=== PATIENT | male | born 1955 ===

== ENCOUNTER → 2018-09-19 | Outpatient (CLI) | payer OTHER ==
[2018-09-13 11:16] VITALS: BMI 35.7
[2018-09-19 13:59] VITALS: BP 144/84; PULSE 103; RESP 18; TEMP 98.1
--- NOTE | 2018-09-19 15:11 | P.PAINCN ---
History of Present Illness - Reason for Consult Consult date: 09/19/18 - History of Present Illness This is 62 years old male with a chronic history of severe low back pain with radiation to the lower extremity, pain started 8 years ago he denies any initiating event and can still the pain increased over time, pain associated with numbness and tingling sensation, is constant and increases with any activity aggravated with, walking standing, and then the numbness radiated to both feet bilaterally, he denies any fever or night sweats he denies any change in bowel movement or urination, he , is currently on Neurontin, he continued to have numbness and tingling, he never tried any interventional pain management he never had any surgical intervention on his back, he denies any weakness in his lower extremity but he feels that after walking for a couple of blocks he feels his legs weak, was never evaluated by neurosurgery and he was referred to [facility] pain clinic for interventional pain management Past Medical History Past Medical History: GERD/Reflux, Hyperlipidemia, Hypertension, Myocardial Infarction ([place]), Sleep Apnea/CPAP/BIPAP Additional Past Medical History / Comment(s): freq nighttime urination,does not use cpap,herpes Last Myocardial Infarction Date:: 2011 History of Any Multi-Drug Resistant Organisms: None Reported Past Surgical History: Heart Catheterization With Stent Additional Past Surgical History / Comment(s): heart stent x1,ORIF left lower arm Past Anesthesia/Blood Transfusion Reactions: No Reported Reaction Additional Past Anesthesia/Blood Transfusion Reaction / Comm: no hx blood transfusion Date of Last Stent Placement:: 2011 Past Psychological History: Bipolar Smoking Status: Current every day smoker Past Alcohol Use History: Occasional Additional Past Alcohol Use History / Comment(s): started at age 32,<1ppd Past Drug Use History: None Reported - Past Family History Father Family Medical History: Cancer Additional Family Medical History / Comment(s): colon Medications and Allergies Home Medications Medication Instructions Recorded Confirmed Type Aspirin 81 mg PO DAILY 09/13/18 09/19/18 History Citalopram Hydrobromide [CeleXA] 20 mg PO DAILY 09/13/18 09/19/18 History Diltiazem Cd [Cardizem Cd] 180 mg PO DAILY 09/13/18 09/19/18 History Gabapentin [Neurontin] 400 mg PO DAILY 09/13/18 09/19/18 History Lisinopril [Zestril] 40 mg PO DAILY 09/13/18 09/19/18 History Simvastatin 40 mg PO DAILY 09/13/18 09/19/18 History Tamsulosin HCl [Flomax] 0.4 mg PO DAILY 09/13/18 09/19/18 History valACYclovir [Valtrex] 500 mg PO DAILY 09/13/18 09/19/18 History Allergies Allergy/AdvReac Type Severity Reaction Status Date / Time No Known Allergies Allergy Verified 09/19/18 13:45 Physical Exam Vitals: Vital Signs Temp Pulse Resp BP Pulse Ox 09/19/18 13:46 98.1 F 103 H 18 144/84 97 Social history : smoker , NO ETOH . Review of Systems : - Constitutional : no chills , no fever , no night sweats , - Ears : no ear discharge , no change in hearing -Nose, Mouth ,Throat ; no bleeding gums, no sore throat , no epistaxis , -Cardiovascular : Denies chest pain, , no orthopnea , no palpitation -Respiratory : Denies cough , no dyspnea , no hemoptysis -Gastrointestinal :, no change in bowel habits , no coffee- ground emesis . -Genitourinary : No hematuria , no discharge , no incontinence, -Musculoskeletal : No gait dysfunction , report low back pain , - Neurological : no ataxia , no tremor , no sezure , -Psychatric , no suicidal ideation no hallucination - Endocrine : no cold intolerence , no polyuria , no polydypsia , -Hematologic : no easy bleeding , no easy brusing , -Allergic / immunology : no angioedema , no wheezing ,no allergic rhinitis -Integumentary : no brttle nails , no change hair / nails , no foot/leg ulcers . Physical Examinations : -Constitutional : Cooperative , not in acute distress . -HEENT : nech ; supple , no Lymphadenopathy , no Thyromegaly , :eyes , no icterus, no photophobia . ENT : , normal oropharynx , no Thrush - Respiratory : Chest clear to auscultations Bilaterally , no wheezing - Cardiovascular : regular rate and rhythem , S1 , S2 , no S3 , no S4. - Gastrointestinal: abdomen soft no tenderness , no organomegally . - Genitourinary : Defferred . -Integumentary : No cellulitis , no ulcers , normal skin turgor , no cyanotic . - neurologic : Cranial nerve II to XII intact , no focal neurological deffecit -psychatric : alert , oriented X 3 , appropriate affect , intact judgment and insight . -Lymphatic : no Lymphadenopathy. - musculoskeltal: normal gait Lumber spine moter stegnth lower extremities ,thigh and legs 5/5 Right side , 5/5 Left side deep tendon reflexes : normal Knee Jerk , normal ankle Jerk positive lumber facet Loading Test Range of motion of the lumbar spine Flexion 60 degrees, extension 30 degrees strait leg raising test , positive at 45 degree Fabere test positive RT and positive LT . Severe tenderness over the sacroiliac joint on the right side, and on the left side Gaenslen test= positive bilaterally Seated flexion test= positive bilaterally Results Comments: Computed tomography scan of the lumbar spine showed multilevel lumbar degenerative disc disease and lumbar facet arthropathy L4 5 spinal stenosis Assessment and Plan Plan: Assessment and plan= lumbar radiculopathy, lumbar degenerative disc disease, lumbar spinal stenosis, moderate spondylosis with lumbar facet arthropathy Patient could benefit from lumbar epidural steroid injection at L4 5 under fluoroscopy guidance Patient requests no sedation, Time with Patient: Greater than 30 PQRS Measure Charge Sheet Measure #130: Documentation of Current Meds in Medical Chart: Patient's medications documented in chart Measure #226: Tobacco Use: Screen & Cessation Intervention: Pt screened for tobacco use AND intervention given Measure #111: Pneumonia Vaccination: Pneumococcal vaccine NOT administered or previously given Measure #47: Advance Care Plan: Advance care planning discussed & documented, pt chose/unable to give Measure #412: Opioid Treatment Agreement: No documentation of signed opioid treatment agreement Measure #408: Opioid Therapy Follow-up Evaluation: Patient had NO f/u eval minimum every 3 months during opioid therapy Measure #317: Preventitive Care & Scrn High Bld Press & F/U: Pre-hypertensive or hypertensive BP documented, pt will f/u with PCP Measure #128: Body Mass Index (BMI) Screening & Follow-up: BMI documented ABOVE normal parameters - f/u documented Measure #131: Pain Assessment & Follow-up: Pain positive & plan documented, Follow-up scheduled Measure #431: Unhealthy Alcohol Use Preventative Care & Scrn: Patient not identified as an unhealthy alcohol user PQRS Narrative: Smoking Status Current every day smoker Do You Want the Pneumonia No Vaccine AT THIS TIME? Blood Pressure 144/84 Pain Intensity [Bilateral 3 Lower Back] Hx Alcohol Use (MH) No Home Medications: Ambulatory Orders Aspirin 81 mg PO DAILY 09/13/18 Citalopram Hydrobromide [CeleXA] 20 mg PO DAILY 09/13/18 Diltiazem Cd [Cardizem Cd] 180 mg PO DAILY 09/13/18 Gabapentin [Neurontin] 400 mg PO DAILY 09/13/18 Lisinopril [Zestril] 40 mg PO DAILY 09/13/18 Simvastatin 40 mg PO DAILY 09/13/18 Tamsulosin HCl [Flomax] 0.4 mg PO DAILY 09/13/18 valACYclovir [Valtrex] 500 mg PO DAILY 09/13/18
== END ==
LOC: PNWHC3 13:13
PROVIDERS: ATTEND Specialist
DX: M48.061 Spinal stenosis, lumbar region without neurogenic claudication (principal); M51.16 Intervertebral disc disorders with radiculopathy, lumbar region; M47.26 Other spondylosis with radiculopathy, lumbar region; M46.96 Unspecified inflammatory spondylopathy, lumbar region; F17.200 Nicotine dependence, unspecified, uncomplicated; Z79.891 Long term (current) use of opiate analgesic; Z79.82 Long term (current) use of aspirin; Z79.899 Other long term (current) drug therapy
CPT/HCPCS: 99211

== ENCOUNTER 2018-10-03 08:29 | Day surgery (SDC) | payer OTHER ==
[2018-09-28 15:00] VITALS: BMI 35.4
[~2018-10-03 08:29] MED LIST: SODIUM CHLORIDE 0.9% 500 ML 500 ML IV SCH
[2018-10-03 08:55] VITALS: PULSE 84; RESP 16; TEMP 97.2
[2018-10-03 09:04] VITALS: BP 187/102
[2018-10-03] MEDS ORDERED: LISINOPRIL 20 MG TAB PO STA (09:40)
[2018-10-03] MEDS ORDERED: DILTIAZEM CD 180 MG CAP.ER.24H PO STA (09:41)
== END 2018-10-03 10:04 | disposition home or self-care (01) ==
LOC: ORPAIN 08:29
PROVIDERS: ATTEND Pain Medicine Pain Medicine
DX: M48.02 Spinal stenosis, cervical region (principal); Z53.8 Procedure and treatment not carried out for other reasons; R03.0 Elevated blood-pressure reading, without diagnosis of hypertension

== ENCOUNTER 2018-10-03 10:09 | Emergency (ER) | payer OTHER ==
--- NOTE | 2018-10-03 10:24 | ED ---
General Adult HPI - General Stated complaint: High BP Time Seen by Provider: 10/03/18 10:14 Source: patient, RN notes reviewed Limitations: no limitations - History of Present Illness Initial comments: Patient is a pleasant 63-year-old male presenting to the emergency department with friend for hypertension. Patient states he has been under increased stress recently. Patient is having problems fighting with his insurance company. Patient did have an appointment for epidural injection for his chronic lower back pain with anesthesia today. Patient has had chronic lower back pain for years. Patient did not take his blood pressure medication this morning prior to the procedure. Blood pressure up there was as high as 200/140. Repeat diastolic was 110. Patient was given his blood pressure medication just around 15 minutes ago and advised to come to the emergency department. - Related Data Home Medications Medication Instructions Recorded Confirmed Aspirin 81 mg PO DAILY 09/13/18 10/03/18 Citalopram Hydrobromide [CeleXA] 20 mg PO DAILY 09/13/18 10/03/18 Diltiazem Cd [Cardizem Cd] 180 mg PO DAILY 09/13/18 10/03/18 Gabapentin [Neurontin] 400 mg PO DAILY 09/13/18 10/03/18 Lisinopril [Zestril] 40 mg PO DAILY 09/13/18 10/03/18 Simvastatin 40 mg PO DAILY 09/13/18 10/03/18 Tamsulosin HCl [Flomax] 0.4 mg PO DAILY 09/13/18 10/03/18 valACYclovir [Valtrex] 500 mg PO DAILY 09/13/18 10/03/18 Allergies Allergy/AdvReac Type Severity Reaction Status Date / Time No Known Allergies Allergy Verified 10/03/18 10:15 Review of Systems ROS Statement: Those systems with pertinent positive or pertinent negative responses have been documented in the HPI. ROS Other: All systems not noted in ROS Statement are negative. Constitutional: Denies: fever Eyes: Denies: eye pain ENT: Denies: ear pain Respiratory: Denies: dyspnea Cardiovascular: Denies: chest pain Endocrine: Denies: fatigue Gastrointestinal: Denies: abdominal pain Genitourinary: Denies: dysuria Musculoskeletal: Reports: as per HPI Skin: Denies: rash Neurological: Denies: weakness Past Medical History Past Medical History: GERD/Reflux, Hyperlipidemia, Hypertension, Myocardial Infarction ([place]), Sleep Apnea/CPAP/BIPAP Additional Past Medical History / Comment(s): freq nighttime urination,does not use cpap,herpes Last Myocardial Infarction Date:: 2011 History of Any Multi-Drug Resistant Organisms: None Reported Past Surgical History: Heart Catheterization With Stent Additional Past Surgical History / Comment(s): heart stent x1,ORIF left lower arm Past Anesthesia/Blood Transfusion Reactions: No Reported Reaction Additional Past Anesthesia/Blood Transfusion Reaction / Comment(s): no hx blood transfusion Date of Last Stent Placement:: 2011 Past Psychological History: Bipolar Smoking Status: Current every day smoker Past Alcohol Use History: Occasional Additional Past Alcohol Use History / Comment(s): started at age 32,<1ppd Past Drug Use History: None Reported - Past Family History Father Family Medical History: Cancer Additional Family Medical History / Comment(s): colon General Exam Limitations: no limitations General appearance: alert, in no apparent distress Head exam: Present: atraumatic Eye exam: Present: normal appearance, PERRL Neck exam: Present: normal inspection Respiratory exam: Present: normal lung sounds bilaterally Cardiovascular Exam: Present: regular rate, normal rhythm, systolic murmur Expanded Peripheral pulses: 2+: Radial (R), Radial (L), Posterior Tibialis (R), Posterior Tibialis (L), Dorsalis Pedis (R), Dorsalis Pedis (L) GI/Abdominal exam: Present: soft. Absent: tenderness Extremities exam: Present: normal inspection. Absent: pedal edema, calf tenderness Neurological exam: Present: alert. Absent: motor sensory deficit Psychiatric exam: Present: normal affect, normal mood Skin exam: Present: normal color Course Vital Signs 10/03/18 10/03/18 10/03/18 10:27 10:29 10:30 Temperature 98.8 F Pulse Rate 76 77 78 Respiratory 18 Rate Blood Pressure 190/119 203/116 O2 Sat by Pulse 98 97 Oximetry 10/03/18 10/03/18 10/03/18 11:00 11:30 12:00 Temperature Pulse Rate 79 83 81 Respiratory Rate Blood Pressure 190/119 191/125 175/124 O2 Sat by Pulse 96 97 92 L Oximetry 10/03/18 10/03/18 10/03/18 12:30 13:30 13:45 Temperature Pulse Rate 82 87 74 Respiratory 16 Rate Blood Pressure 183/118 163/101 163/101 O2 Sat by Pulse 94 L 91 L Oximetry 10/03/18 10/03/18 14:00 14:15 Temperature Pulse Rate 75 72 Respiratory Rate Blood Pressure 155/104 149/96 O2 Sat by Pulse 93 L 93 L Oximetry EKG Findings - EKG Comments: EKG Findings:: Normal sinus rhythm at 80. For screening AV block with MT of 208. QRS 92. QT 382. QTC 440. Normal axis. Inferior Q waves. No acute ST change. Medical Decision Making - Medical Decision Making Patient requesting discharge. Blood pressure has improved to 158/96. Patient does request medication for his chronic back pain. Patient updated on results and need for close follow-up with primary care physician regarding blood pressure management. - Lab Data Result diagrams: 10/03/18 11:45 10/03/18 11:45 Lab Results 10/03/18 10/03/18 Range/Units 11:45 11:45 WBC 7.8 (3.8-10.6) k/uL RBC 5.36 (4.30-5.90) m/uL Hgb 15.5 (13.0-17.5) gm/dL Hct 47.9 (39.0-53.0) % MCV 89.4 (80.0-100.0) fL MCH 29.0 (25.0-35.0) pg MCHC 32.4 (31.0-37.0) g/dL RDW 13.8 (11.5-15.5) % Plt Count 228 (150-450) k/uL Neutrophils % 46 % Lymphocytes % 31 % Monocytes % 5 % Eosinophils % 15 % Basophils % 0 % Neutrophils # 3.6 (1.3-7.7) k/uL Lymphocytes # 2.4 (1.0-4.8) k/uL Monocytes # 0.4 (0-1.0) k/uL Eosinophils # 1.2 H (0-0.7) k/uL Basophils # 0.0 (0-0.2) k/uL Sodium 135 L (137-145) mmol/L Potassium 5.0 (3.5-5.1) mmol/L Chloride 100 (98-107) mmol/L Carbon Dioxide 28 (22-30) mmol/L Anion Gap 7 mmol/L BUN 17 (9-20) mg/dL Creatinine 0.64 L (0.66-1.25) mg/dL Est GFR (CKD-EPI)AfAm >90 (>60 ml/min/1.73 sqM) Est GFR (CKD-EPI)NonAf >90 (>60 ml/min/1.73 sqM) Glucose 106 H (74-99) mg/dL Calcium 9.4 (8.4-10.2) mg/dL Total Bilirubin 0.5 (0.2-1.3) mg/dL AST 35 (17-59) U/L ALT 47 (21-72) U/L Alkaline Phosphatase 86 (38-126) U/L Total Protein 7.6 (6.3-8.2) g/dL Albumin 4.4 (3.5-5.0) g/dL Disposition Clinical Impression: Hypertension Disposition: HOME SELF-CARE Condition: Stable Instructions (If sedation given, give patient instructions): Hypertension (ED) Additional Instructions: Please follow-up with primary care physician in the next day or 2 for recheck and further care regarding blood pressure. Return for uncontrolled blood pressure, increased pain, worsening or change in symptoms or other concerns. Is patient prescribed a controlled substance at d/c from ED?: No Referrals: Arjun Santoro NPC [Primary Care Provider] - 1-2 days Time of Disposition: 14:37
[2018-10-03] MEDS ORDERED: ENALAPRILAT 1.25 MG/ML 1 ML VIAL IVP STA (11:50)
[2018-10-03 12:04] LABS: Basophils % (A) 0 %; Eosinophils # (A) 1.2 k/uL (0-0.7); Eosinophils % (A) 15 %; HCT 47.9 % (39.0-53.0); HGB 15.5 gm/dL (13.0-17.5); Lymphocytes # (A) 2.4 k/uL (1.0-4.8); Lymphocytes % (A) 31 %; MCHC 32.4 g/dL (31.0-37.0); MCV 89.4 fL (80.0-100.0); Mean Platelet Volume 7.2; Monocytes # (A) 0.4 k/uL (0-1.0); Monocytes % (A) 5 %; Neutrophils # (A) 3.6 k/uL (1.3-7.7); Neutrophils % (A) 46 %; Platelet Count 228 k/uL (150-450); RBC 5.36 m/uL (4.30-5.90); RDW 13.8 % (11.5-15.5); WBC 7.8 k/uL (3.8-10.6)
[2018-10-03 12:16] LABS: ALT 47 U/L (21-72); AST 35 U/L (17-59); Albumin 4.4 g/dL (3.5-5.0); Alkaline Phosphatase 86 U/L (38-126); Anion Gap 7 mmol/L; Blood Urea Nitrogen 17 mg/dL (9-20); Calcium 9.4 mg/dL (8.4-10.2); Carbon Dioxide 28 mmol/L (22-30); Chloride 100 mmol/L (98-107); Glucose 106 mg/dL (74-99); Sodium 135 mmol/L (137-145); Total Bilirubin 0.5 mg/dL (0.2-1.3); Total Protein 7.6 g/dL (6.3-8.2)
[2018-10-03] MEDS ORDERED: LABETALOL SYRINGE 5 MG/ML IVP STA (13:11)
[2018-10-03 13:42] VITALS: RESP 16
[2018-10-03] MEDS ORDERED: HYDROcodone/APAP 5-325MG 1 EACH TAB PO STA (14:35)
[2018-10-03 14:50] VITALS: BP 148/99; PULSE 85; TEMP 98
== END 2018-10-03 15:00 | disposition home or self-care (01) ==
LOC: EC 10:09
DX: I10 Essential (primary) hypertension (principal); R01.1 Cardiac murmur, unspecified; M54.5 Low back pain; G89.29 Other chronic pain; E78.5 Hyperlipidemia, unspecified; I25.2 Old myocardial infarction; F31.9 Bipolar disorder, unspecified; F17.200 Nicotine dependence, unspecified, uncomplicated; Z79.82 Long term (current) use of aspirin; Z79.899 Other long term (current) drug therapy; Z95.5 Presence of coronary angioplasty implant and graft
CPT/HCPCS: 36415; 80053; 85025; 93005; 96374; 96375; 99283

== ENCOUNTER 2018-12-04 09:50 | Day surgery (SDC) | payer OTHER ==
[2018-12-01 11:31] VITALS: BMI 36.9
[~2018-12-04 09:50] MED LIST changes: +LACTATED RINGERS 1,000 ML IV SCH; -SODIUM CHLORIDE 0.9% 500 ML 500 ML IV SCH
[2018-12-04 10:32] VITALS: RESP 18; TEMP 97.8
--- NOTE | 2018-12-04 11:38 | P.PCN ---
Date of Procedure: 12/04/18 Procedure(s) Performed: PREOPERATIVE DIAGNOSIS: 1- Lumbar Degenerative Disc Diseases 2-Lumbar spondylosis with Facet arthropathy without myelopathy POSTOPERATIVE DIAGNOSIS: 1-Lumber Degenerative Disc Diseases 2-Lumbar spondylosis with Facet arthropathy without myelopathy PROCEDURE 1. Lumbar epidural steroid injection under fluoroscopic guidance at the L4-5 level. 2. Lumbar epidurogram. ANESTHESIA: Local with 1% lidocaine 3 ml and , moderate sedation with intravenous Versed 1 mg ,and fentanyle 50 Mcg EBL: Minimal PROCEDURE INDICATION: The patient with low back pain and radiculitis symptoms unresponsive to conservative treatment. Fluoroscopy was used to optimize visualization of the needle placement and to maximize safety. PROCEDURE DESCRIPTION / TECHNIQUE: The patient was seen and identified in the preoperative area. Risks, benefits, complications including but not limited to infections ,bleeding ,allergic reaction to the medications ,nerve damage and not complete pain releife , and alternatives were discussed with the patient. The patient agreed to proceed with the procedure and signed the consent. IV was started, and vital signs were stable. Patient was taken to the OR and time out was completed. The patient was placed in the prone position on procedure table and a pillow was placed under the abdomen to reduce lumbar lordosis. The lumbosacral area was prepped and draped in the usual sterile fashion.ere closely monitored during the procedure. Conscious sedation was used during the procedure to decrease patients anxiety. Vital signs was monitered during the entire procedure. Using anterior-posterior fluoroscopy, the L4-5 interlaminar space was identified and the skin over this site was marked and then infiltrated with 1% lidocaine subcutaneously. Subsequently, 18-gauge 6 inches long Tuohy epidural needle was inserted and advanced toward the epidural space using the ``Loss of resistance technique and guided by AP and lateral fluoroscopy. The correct needle position in the epidural space was verified with the injection of 2 mL of the water soluble contrast dye Isovue 200 contrast and observing an excellent epidurogram with the epidural spread of the dye, after negative aspiration for blood and CSF and in the absence of paresthesias. Again after negative aspiration, a 6 ml mixture containing 80 mg of Depo-medrol , and 2 ml of preservative free Normal Saline, and 2 ml of preservative free lidocaine 1% solution was injected and a washout of epidurogram was seen. Needle was withdrawn intact, skin was cleansed, and bandages were applied. COMPLICATIONS: None DISPOSITION / PLANS: The patient was placed in a supine position and transferred to the recovery area in a stable condition for observation. There was no evidence of lower extremity motor or sensory deficit after the procedure. Patient was discharged from the recovery room after meeting discharge criteria. Home discharge instructions were given to the patient by the staff. The patient was reexamined prior to discharge. The patient will schedule a follow up in the clinic in 2-4 weeks.
[2018-12-04] MEDS ORDERED: IV FLUID CONTINUATION 1,000 ML IV ONE (11:42)
--- NOTE | 2018-12-04 11:53 | FL ---
EXAMINATION TYPE: FL guided pain mgmt statistic DATE OF EXAM: 12/04/2018 HISTORY: Flouroscopy time 31 seconds of fluoroscopy provided. IMPRESSION: 1. Fluoroscopy time.
[2018-12-04 12:02] VITALS: BP 137/78; PULSE 78
== END 2018-12-04 12:13 | disposition home or self-care (01) ==
LOC: ORPAIN 09:50
PROVIDERS: ATTEND Specialist
DX: M47.26 Other spondylosis with radiculopathy, lumbar region (principal); M51.16 Intervertebral disc disorders with radiculopathy, lumbar region
CPT/HCPCS: 62323; J2250; J1030; J3010; 99152

== ENCOUNTER 2019-01-29 10:01 | Day surgery (SDC) | payer OTHER ==
[2019-01-29] MEDS ORDERED: LACTATED RINGERS 1,000 ML IV SCH (10:23)
[2019-01-29 10:29] VITALS: TEMP 97.2
[2019-01-29] MEDS ORDERED: LIDOCAINE 1% 20 ML VIAL (10MG/ML) FOR IV START INTRADERMA ONE (10:33)
[2019-01-29 10:35] VITALS: BMI 36.1
--- NOTE | 2019-01-29 11:33 | P.PCN ---
Date of Procedure: 01/29/19 Procedure(s) Performed: PREOPERATIVE DIAGNOSIS: 1- Lumbar radiculopathy, Lumbar Degenerative Disc Diseases 2-Lumbar spondylosis with Facet arthropathy without myelopathy POSTOPERATIVE DIAGNOSIS: 1-Lumber Degenerative Disc Diseases 2-Lumbar spondylosis with Facet arthropathy without myelopathy PROCEDURE 1. Lumbar epidural steroid injection under fluoroscopic guidance at the L4-5 level using a left paramedian approach 2. Lumbar epidurogram. ANESTHESIA: Local with 1% lidocaine 3 ml, moderate sedation with intravenous Versed and fentanyl EBL: Minimal PROCEDURE INDICATION: The patient with low back pain and radiculitis symptoms unresponsive to conservative treatment. Fluoroscopy was used to optimize visualization of the needle placement and to maximize safety. PROCEDURE DESCRIPTION / TECHNIQUE: The patient was seen and identified in the preoperative area. Risks, benefits, complications including but not limited to infections ,bleeding ,allergic reaction to the medications ,nerve damage and incomplete pain releif , and alternatives were discussed with the patient. The patient agreed to proceed with the procedure and signed the consent. IV was started, and vital signs were stable. Patient was taken to the OR and time out was completed. The patient was placed in the prone position on procedure table and a pillow was placed under the abdomen to reduce lumbar lordosis. The lumbosacral area was prepped and draped in the usual sterile fashion. Vitals were closely monitored during the procedure. Conscious sedation was used during the procedure to decrease patients anxiety. Using anterior-posterior fluoroscopy, the L4-5 interlaminar space was identified and the skin over this site was marked and then infiltrated with 1% lidocaine subcutaneously. Subsequently, 18-gauge 6 inch Tuohy epidural needle was inserted and advanced toward the epidural space using the loss of resistance technique and guided by AP and lateral/ oblique fluoroscopy. The correct needle position in the epidural space was verified with the injection of 2 mL of the water soluble contrast dye Isovue 200 contrast under live fluoroscopy, observing an excellent epidurogram. Then, after negative aspiration for blood and CSF and in the absence of paresthesias, a 5 ml mixture containing 80 mg of Depo-medrol , 3 ml of preservative free Normal Saline, and 1 ml of preservative free lidocaine 1% solution was injected and a washout of epidurogram was seen. Needle was withdrawn intact, skin was cleansed, and bandages were applied. COMPLICATIONS: None DISPOSITION / PLANS: The patient was placed in a supine position and transferred to the recovery area in a stable condition for observation. There was no evidence of lower extremity motor or sensory deficit after the procedure. Patient was discharged from the recovery room after meeting discharge criteria. Home discharge instructions were given to the patient by the staff. The patient will schedule a follow up in the clinic in 2-4 weeks.
[2019-01-29] MEDS ORDERED: IV FLUID CONTINUATION 1,000 ML IV ONE (11:38)
[2019-01-29 11:54] VITALS: BP 132/91; PULSE 85; RESP 18
--- NOTE | 2019-01-29 11:56 | FL ---
EXAMINATION TYPE: FL guided pain mgmt statistic DATE OF EXAM: 01/29/2019 HISTORY: Flouroscopy time 6 seconds of fluoroscopy provided. IMPRESSION: 1. Fluoroscopy time.
== END 2019-01-29 12:12 | disposition home or self-care (01) ==
LOC: ORPAIN 10:01
PROVIDERS: ATTEND Anesthesiology
DX: M47.26 Other spondylosis with radiculopathy, lumbar region (principal); M51.16 Intervertebral disc disorders with radiculopathy, lumbar region
CPT/HCPCS: 62323; J2250; J1030; J3010; Q9966